=== PATIENT | female | born 1950 | race Caucasian/White ===

== ENCOUNTER 2019-12-27 12:13 | Observation (INO) | payer MEDICARE, SELFPAY ==
[2019-12-27] VITALS (18 sets, daily range): BP systolic 120–153; BP diastolic 57–82; PULSE 70–96; RESP 10–21; TEMP 36.2–37.6; O2SAT 93–99; BMI 21.6
--- NOTE | 2019-12-27 | PATH_ITS ---
[facility] Accession Number: [id number] . 01 Material submitted: . appendix - APPENDIX . 01 Clinical history: . APPENDICITIS . 02 Diagnosis: Appendix, Appendectomy: Acute appendicitis and serositis. [facility] 12/29/2019 0949 Local . 02 Electronically signed: . Bouchra Goss MD, Pathologist NPI- [id number] . 01 Gross description: . Received in formalin, labeled appendix, is an intact appendix (length-6.3 cm, diameter-0.7 cm) with drake-pink smooth shiny serosa and attached mesoappendix (up to 1.8 cm in depth). The resection margin is received crimped closed. The lumen contains clear colorless fluid. The wall is up to 0.2 cm thick. No nodules, masses or lesions are identified. The resection margin is inked blue. Section code: (A1) resection margin en face and four ict sales representative serial sections; (A2) one-half of the bivalved tip. ([id number]) /MRV 12/28/2019 1445 Local . 02 Pathologist provided ICD-10: K35.80 . 02 CPT . 710267 Performed at: 01 [facility] [address] [facility], [place], [place] [id number] MD Jaiden Wild MD Phone: [phone] Performed at: 02 [facility] [address] [place], [place] [id number] MD Cass Medeiros MD Phone: [phone]
--- NOTE | 2019-12-27 12:18 | ED.GENADULT ---
HPI - General Adult General Chief complaint: Abdominal Pain Stated complaint: Appendicitis Time Seen by Provider: 12/27/19 12:18 Source: patient Mode of arrival: Family Vehicle Limitations: no limitations History of Present Illness HPI narrative: Patient is a 69-year-old female transferred to us from [place] with a diagnosis of acute appendicitis. Patient states that her symptoms started yesterday. Worsening since then. Nausea. Decreased appetite. States she did not sleep very well last night. Woke up this morning tried to have a little bit of coffee but was unable to. Went to the emergency department where she had a CT scan done which showed an acute appendicitis. Does not have an elevated white count. No fevers. Was given 1 g of Rocephin at 0800 hours this morning and also 500 mg of Flagyl at 0915. Patient was also given pain medication. Related Data Home Medications Medication Instructions Recorded Confirmed estradiol [Estring] 1 vag ring VAGINAL [id number] 12/27/19 progesterone micronized 200 mg PO BID 12/27/19 12/27/19 thyroid (pork) [[place] Thyroid] 180 mg PO DAILY 12/27/19 12/27/19 Allergies Allergy/AdvReac Type Severity Reaction Status Date / Time No Known Drug Allergies Allergy Verified 12/27/19 12:18 Review of Systems Cardiovascular Cardiovascular: Denies chest pain and Denies dyspnea Respiratory Respiratory: Denies dyspnea Gastrointestinal Gastrointestinal: Reports abdominal pain, Reports nausea and Denies vomiting Integumentary/Breasts Skin/Breast: Denies rash Neurologic Neurologic: Denies behavioral changes Psychiatric Psychiatric: Denies behavioral changes Patient History Medical History Breast cancer (Acute) Hypothyroid (Acute) Surgical History H/O mastectomy (Acute) History of total right hip replacement (Acute) Social History lives independently: Yes Exam Initial Vital Signs Initial Vital Signs: Vital Signs Temperature 97.8 F 12/27/19 12:18 Pulse Rate 81 12/27/19 12:18 Respiratory Rate 15 12/27/19 12:18 Blood Pressure 148/68 H 12/27/19 12:18 Pulse Oximetry 99 12/27/19 12:18 Const General: cooperative, comfortable and well developed Limitations: mental status not altered Resp Effort & Inspection: normal respiratory effort Auscultation: clear to auscultation bilaterally Cardio Rate: regular rate Rhythm: regular rhythm GI Inspection: non-distended Palpation: soft and tender (Right lower quadrant) Skin Rashes: no rashes Neuro General: alert, awake and oriented x3 Cognition: normal cognition Speech: speech normal Extrem General: normal to inspection and capillary refill normal Psych Appearance: grossly normal and well kempt Course Orders Ordered: ED Orders 12/27/19 12:39 Consult to General Surgery Routine Sodium Chloride (Normal Saline 0.9%) 1,000 mls @ 125 mls/hr IV CONT CHRISTIANE Discontinued Medications Morphine Sulfate (Morphine) 4 mg IV NOW ONE Stop: 12/27/19 12:39 Vital Signs Vital signs: Vital Signs - 8 hr 12/27/19 12:18 Temperature 97.8 F Pulse Rate 81 Respiratory Rate 15 Blood Pressure 148/68 H Pulse Oximetry 99 Medical Decision Making MDM Narrative Medical decision making narrative: Patient does not have an elevated will count. I did review the report from the CT scan which does show acute appendicitis. I did discuss the case with with general surgery who evaluated the patient in the emergency department. Pain will be to admit with surgery later today. Discharge Plan Departure Patient Disposition: Admitted as Observation Clinical Impression: Acute appendicitis Qualifiers: Acute appendicitis type: unspecified acute appendicitis type Qualified Code(s): K35.80 - Unspecified acute appendicitis Admit Date/Time: 12/27/19 12:41 Admit Provider: Wesley Friend
--- NOTE | 2019-12-27 12:46 | P.HP_ITS ---
History of Present Illness History of Present Illness Date Patient Seen: 12/27/19 Time Patient Seen: 12:46 Chief complaint: Appendicitis Narrative: 69-year-old white female patient developed abdominal pain yesterday afternoon was associated with anorexia nausea but no vomiting. She had a difficult time sleeping last night because of increasing abdominal pain went to the clinic at [place] where she had a CT scan done confirming acute appendicitis. Patient History Medical History Breast cancer (Acute) Hypothyroid (Acute) Surgical History H/O mastectomy (Acute) History of total right hip replacement (Acute) Family & Social History Social History: lives independently Yes Safety & Behavioral: Feels Safe in Current Yes Environment Been Physically Hurt or No Threatened By a Person Meds Home Medications and Allergies Home Medications Medication Instructions Recorded Confirmed Type estradiol [Estring] 1 vag ring VAGINAL [id number] 12/27/19 History progesterone micronized 200 mg PO BID 12/27/19 12/27/19 History thyroid (pork) [[place] Thyroid] 180 mg PO DAILY 12/27/19 12/27/19 History Allergies Allergy/AdvReac Type Severity Reaction Status Date / Time No Known Drug Allergies Allergy Verified 12/27/19 12:18 Review of Systems Review of Systems ROS: Yes All systems reviewed with the patient and are negative except as otherwise documented Exam Vital Signs (past 8 hours): - 12/27/19 12:18 Temperature 97.8 F Pulse Rate 81 Respiratory Rate 15 Blood Pressure 148/68 H Pulse Oximetry 99 Oxygen Delivery Method Room Air Narrative Exam Narrative: Patient has moderate right lower quadrant abdominal pain. She is alert and oriented. Lungs distant breath sounds but no rales or wheezes Heart regular rhythm. She has a grade 2/6 systolic ejection murmur heard toward the base of the neck. Abdomen is not distended She has exquisite right lower quadrant abdominal tenderness with guarding. No masses are palpated. Assessment & Plan Assessment & Plan narrative: Patient has a normal white count 10,800. She does have CT scan evidence of acute uncomplicated appendicitis. She has received intravenous antibiotics at the [facility]. She will undergo appendectomy this afternoon when an operating room becomes available.
[2019-12-27] MEDS: MORPHINE 2 MG/ML INJ IV (13:15)
[2019-12-27] MEDS: ONDANSETRON 4 MG/2 ML INJ IV (13:16)
[2019-12-27] MEDS: SODIUM CHLORIDE 0.9% 1,000 ML 125 ML IV (13:16)
[2019-12-27] MEDS: LACTATED RINGERS 1,000 ML 42 ML IV (18:30)
[2019-12-27] MEDS: CEFOTETAN 1 GM/50 ML PIGGYBACK IV (18:40)
--- NOTE | 2019-12-27 18:52 | SUR.OPER ---
Supine on padded OR bed, head on pillow, arms secured on padded arm boards at <90 degrees abduction, legs uncrossed, safety belt at thigh, tape over blanket over lower legs.
[2019-12-27] MEDS: SODIUM CHLORIDE IRRIG SOLUTION 1,000 ML, BACITRACIN 50,000 UNIT IRR (18:58)
[2019-12-27] MEDS: BUPIVACAINE 0.5% W/ EPI (PF) 10 ML VIAL 30 ML INJ (19:01)
[2019-12-27] MEDS: BACITRACIN OINT 0.9 GM PCKT 1 APPLIC TOP (19:03)
--- NOTE | 2019-12-27 19:15 | PM.OP.1 ---
Operative Date/Time/Diagnoses Date of procedure: 12/27/19 Time of procedure: 19:15 Pre-op diagnosis: Acute uncomplicated appendicitis Post-op diagnosis: same Procedure & Clinicians Procedure: Appendectomy Same procedure as scheduled: Yes Surgeon: Wesley Friend Click Yes if Unassisted: Yes Anesthesia Type: General Operative Notes Findings: Acute uncomplicated appendicitis Closure Type: primary Specimen(s): other (Appendix and cultures) Estimated Blood Loss (mL): 50 Blood products transfused: none Procedure in detail: The patient was properly identified during surgical pause under general endotracheal anesthesia. She was prepped and draped in sterile fashion with exposure of the right lower quadrant of the abdomen. A standard Raffaele-Won incision was made over McBurney's point. The oblique muscles split and agreed iron fashion exposing the peritoneum which was elevated and entered so as to avoid injury to the underlying structures. The cecum was rotated into the wound. The appendix was markedly inflamed but not ruptured and there was no abscess. The mesoappendix divided between clamps the vessels ligated with 2 0 Vicryl ties. The base the appendix was closed with a TA 30? stapler and the appendix above the staple line was removed. There was no bleeding from the staple line which was very lightly coagulated with the Bovie cautery. Appendiceal vessels were intact and not bleeding. The right gutter and pelvis were irrigated with copious bacitracin saline aspirated dry there was no purulence no bleeding. Peritoneum was closed with a running 2 0 Vicryl. Oblique fascia closed with running 1. PDS. The subcu irrigated again with bacitracin saline. The skin stapled sterile dressings applied. Procedure was very well tolerated. Complications: none Post-operative Condition: stable Disposition: PACU
[2019-12-27] MEDS: fentaNYL 100 MCG/2 ML INJ IV ×6 (19:30→20:14)
--- NOTE | 2019-12-27 19:32 | SUR.PHASEI ---
1929 reported pain 7/10, resting with eyes closed, occasional shaking. Rx given. Denies nausea
[2019-12-27] MEDS: OXYCODONE/ACETAMINOPHEN 5/325 TABLET 1 TAB PO (19:48)
--- NOTE | 2019-12-27 19:53 | SUR.PHASEI ---
Son present, talking with pt, occasional grimace, mostly relaxed. PO med given after appleasauce.
--- NOTE | 2019-12-27 20:11 | SUR.PHASEI ---
Pt visiting with son, occasional grimace, mostly smiling and talking. Report called to AYDEE Toribio in acute care.
--- NOTE | 2019-12-27 20:21 | SUR.PHASEI ---
accidentally tore rx label, wouldn't scan. Pain level '5' but stated 'I have to take a deep breath now to make it hurt.' Continues talking with son. No nausea.
--- NOTE | 2019-12-27 20:29 | SUR.PHASEI ---
Report off to Deonna Carreon RN. Pt awake and stable. resting comfortably.
--- NOTE | 2019-12-27 20:38 | SUR.PHASEI ---
Assumed care from Elle. Pt resting comfortable w/o complaints.
[2019-12-27] MEDS: DEXTROSE 5%-0.45% NS 1,000 ML 75 ML IV (21:25)
--- NOTE | 2019-12-27 22:49 | PC.NURSE ---
A&OX4. pain 4/10 and tolerable. ice pack applied. dressing cdi. abdomen mild distention. pt had some ice chips. denied any nausea. pt agreed to call for help. son at bedside. call light in reach. bed alarm active. IVF.
[2019-12-28] MEDS: FAMOTIDINE 20 MG/50 ML PIGGYBACK 200 MG IV (00:04)
[2019-12-28 05:40] VITALS: BP 126/46; PULSE 60; RESP 19; TEMP 36.7; O2SAT 100
[2019-12-28] MEDS: OXYCODONE/ACETAMINOPHEN 5/325 TABLET 1 TAB PO ×2 (07:08→11:51)
[2019-12-28 08:00] VITALS: BP 144/73; PULSE 63; RESP 18; TEMP 36.5; O2SAT 93
[2019-12-28] MEDS: MORPHINE 2 MG/ML INJ IV (08:37)
--- NOTE | 2019-12-28 10:02 | PM.DS.1 ---
History of Present Illness History of Present Illness Chief complaint: Appendicitis Narrative: 69-year-old white female patient developed abdominal pain yesterday afternoon was associated with anorexia nausea but no vomiting. She had a difficult time sleeping last night because of increasing abdominal pain went to the clinic at [place] where she had a CT scan done confirming acute appendicitis. Discharge Providers Provider Date of admission: 12/27/19 12:41 Discharge Date: 12/28/19 Primary care physician: Scarlet Cohen MD Consults: 12/27/19 12:39 Consult to General Surgery Routine Comment: Consulting Provider: Wesley Friend Reason for consultation: Acute appendicitis, admission Has provider been notified: Yes Discharge provider: Wesley Friend MD Summary Hospital Course Discharge Diagnosis: Acute uncomplicated appendicitis Hospital Course: Patient was brought into the hospital with a diagnosis of acute appendicitis a stab least at her clinic in [place]. She had CT confirmation of acute appendicitis. As soon as an operating room became available yesterday evening she underwent open appendectomy. Operation was uneventful and very efficient. This morning patient feels well is tolerating a solid diet with no nausea vomiting. She has the usual amount of incisional discomfort. Her dressing is dry and intact. She is able to be discharged home today she is accompanied by her adult son. Status at Discharge Cognitive/behavioral status at discharge: oriented Functional status at discharge: independent ambulation Overall status at discharge: patient is back to baseline Time Spent with Patient Time spent: Greater than 30 minutes Exam Vital Signs (past 8 hours): - 12/28/19 05:40 12/28/19 08:00 Temperature 98.1 F 97.7 F Pulse Rate 60 63 Respiratory Rate 19 18 Blood Pressure 126/46 L 144/73 H Pulse Oximetry 100 93 Oxygen Delivery Method Nasal Cannula Oxygen Flow Rate 0 Narrative Exam Narrative: Patient is alert and oriented and afebrile Lungs are clear Heart regular rhythm Abdomen soft with the expected amount of incisional tenderness. Dressing is dry and intact. No drainage. Discharge Plan Discharge Plan Patient Disposition: Home Discharge orders & Medications Prescriptions: Continued Estring 2 mg (7.5 mcg /24 hour) ring 1 vag ring VAGINAL [id number] RF: 0 progesterone micronized 100 mg capsule 200 - 400 mg PO BID RF: 0 [place] Thyroid 180 mg tablet 180 mg PO DAILY RF: 0 diclofenac sodium [Voltaren] 1 % Gel 2 g TOPICAL PRN PRN (Reason: pain) RF: 0 Diet/Activity/Treatments Diet: Diet as Tolerated Activity: as tolerated Skin/Wound/Dressing Care Skin care: normal bathing, remove dressing in 2 days, redress as needed Report to your healthcare provider any signs of infection, such as:: chills, fever, night sweats, increased pain, unusual drainage and unusual redness Dressing: remove in 2 days Other wound treatment: remove benita in 5 to 7 days Discharge Data Primary Care Provider: Scarlet Cohen Attending Provider: Wesley Friend Admit Date/Time: 12/27/19 12:41 Quality VTE Deep Vein Thrombosis/Pulmonary Embolism Present on Admission: No
--- NOTE | 2019-12-28 11:30 | CM.DANOTE ---
DCP/Assessment: Reviewed chart. Patient admitted to [facility] on 12-27-19 with an appendicitis. Surgery performed by Dr. Friend. PCP is Dr. Scarlet Cohen. Primary payor is 1)Medicare 2)[facility]. Met with patient and son/Aayush at bedside explained CM/SW role. Patient report that she is completely I with all ADL's. Patient plans to discharge home today. Patient resides on [address] [facility] and her son/Aayush will be taking her home. RN aware patient will need priority boarding pass for 2:10pm sailing to [place]. No identified d/c planning needs at this time. P: Home today with supportive son. AARON Campbell Discharge Planning/Care Management CM Discharge Assessment Start: 12/28/19 11:28 Freq: Status: Active Protocol: Document 12/28/19 11:28 KJS (Rec: 12/28/19 11:30 KJS [email or web address]) Discharge Planning Assessment Assigned Job Coach AARON Campbell Contact Information Aayush Monterroso (son) Advance Directives? Yes History Provided By Patient,Family Member Prior Living Arrangements Apartment/Condo Household Members none Type of transporation used prior to Drives own vehicle admit Independent with ADL's Yes Is patient alert and oriented? Yes Caregiver for Another No Comment Has borrowed walker but does not plan to use. Barriers to Discharge No Discharge Plan Home Transportation Arrangement Son to provide transport. Referrals Initiated None needed Whiteboard Updated in Patient Room with Yes name and ext. # of Job Coach Review Status In Process Next Review Type Continued Stay Review
--- NOTE | 2019-12-28 14:30 | PC.NURSE ---
Discharge: Pt feels ready to d/c home, d/c instructions reviewed. Seen by md and given d/c instructions. Has voided, pain in control, tolerates diet w/out problems. Given d/c packet, priority load form, no rx. Pt d/c home via auto w/family.
--- NOTE | 2020-01-05 10:12 | PC.NURSE ---
Late entry: NS stop time 12/27 2058 Dextrose stop time 12/28 1115
== END 2019-12-28 12:30 | disposition home or self-care (01) ==
LOC: ED 12:24 → AC 12:43
PROVIDERS: Admitting Provider Surgery; Emergency Provider Emergency Medicine; PCP Family Medicine; Referring Provider Emergency Medicine; Visit Provider Surgery
PROC: (CPT 44950; principal; 2019-12-27 17:45)
DX: K35.80 Unspecified acute appendicitis (principal)
CPT/HCPCS: 44970; 87070; 87075; 87205; 94762; 96361; 96374; 96375; 96376; 99218; 99283; 99284; G0378; J1100; J1885; J2250; J2270; J2405; J2704; J3010